=== PATIENT | female | born 1985 | race Caucasian/White ===

== ENCOUNTER 2024-04-01 11:22 | Emergency (ER) | payer OTHER, SELFPAY ==
[2024-04-01 11:27] VITALS: BP 105/78
[2024-04-01 11:52] LABS: Hematocrit 42.5 % (37.0-47.0); Mean Corp Hgb Conc. 35.3 g/dL (33.0-37.0); Mean Corpuscular Hgb 32.1 pg (27.0-31.0); Mean Platelet Volume 8.7 fL (7.4-10.4); Platelet Count 259 10^3/uL (130-400); Red Blood Cell Count 4.67 10^6/uL (4.20-5.40); Red Cell Dist. Width 11.6 % (11.5-14.5); White Blood Cell Count 4.5 10^3/uL (4.8-10.8)
[2024-04-01 12:26] VITALS: BMI 25.5
[2024-04-01 12:28] VITALS: BP 107/77
[2024-04-01 12:31] LABS: ALT (SGPT) 15 U/L (0-35); AST (SGOT) 19 U/L (14-36); Albumin 4.5 g/dl (3.5-5.0); Alkaline Phosphatase 70 U/L (38-126); Blood Urea Nitrogen 11 mg/dl (7-17); Calcium 9.5 mg/dl (8.4-10.2); Carbon Dioxide 24 mmol/L (22-30); Chloride 104 mmol/L (98-107); Estimated Creatinine Clearance 87 ml/min; Glucose 100 mg/dl (70-99); Potassium 4.4 mmol/L (3.5-5.1); Sodium 136 mmol/L (135-145); Total Bilirubin 0.4 mg/dl (0.2-1.3); Total Protein 7.3 g/dl (6.3-8.2); eGFR > 60.00
[2024-04-01 13:16] LABS: % Basophils 0.7 % (0-2); % Eosinophils 0.7 % (0-6); % Immature Granulocytes 0.2 % (0-0.5); % Lymphocytes 51.3 % (20.5-51.1); % Monocytes 8.8 % (1.7-9.3); % Neutrophils 38.3 % (42.2-75.2); Absolute Lymphocytes 2.3 10^3/uL (1.2-3.4); Absolute Monocytes 0.4 10^3/uL (0.1-0.6); Absolute Neutrophils 1.7 10^3/uL (1.4-6.5); Nucleated Red Blood Cells % 0 %
[2024-04-01] MEDS: MOTRIN 600 MG PO (14:43)
[2024-04-01 14:44] VITALS: BP 113/80
--- NOTE | 2024-04-01 15:04 | ED.SKININJ ---
HPI-Injury
<Emilee Arnold PA-C - Last Filed: 04/01/24 18:33>
General
Chief Complaint: Bite
Source: patient and significant other
Exam Limitations: none
Time Seen by Provider: 04/01/24 12:45
Nursing documentation reviewed up to this point in time: agreed with
History of Present Illness-Injury
Initial Injury comments:
Patient is a 38-year-old female who denies significant past medical history who presents to the emergency department accompanied by her for evaluation of symptoms that started 3 weeks ago but worsened 3 days ago. Patient reports that her
symptoms started the first week of March. She reports that she had been tubing down the [facility]. She reports that 1 or 2 days later, she noticed a large swollen reddened area over her right lateral thigh. Patient went to see her doctor 2
days later and was told that it was likely a brown recluse spider bite. Patient was prescribed clindamycin which she took for a week b with some gradual improvement in her symptoms. Patient reports that she went back and was prescribed steroids as
she then developed hives scattered throughout her body. Patient reports that she took a tapering dose of prednisone and this seemed to help with the hives. Patient states that she had a few days where she felt like she was improving but then 3
days ago developed severe generalized fatigue, intermittent headache, night sweats, nausea. Patient reports that the lesion seems to have healed and there is only a slightly hyperpigmented area there. Patient reports that it has been draining
serous fluid but that has resolved as well. Patient denies that it ever drained purulent fluid. Patient denies it was ever incised or drained. Patient reports that she did have a fever 3 days ago, has not had any fever since then but has been
taking ibuprofen [id number]. Patient reports that she called her doctor 2 days ago and they started her on doxycycline. Patient reports she has had 4 doses but also without any improvement in her symptoms. Patient called her doctor back
today and they referred her to the emergency department for further evaluation. At this point, patient denies any new rashes or lesions. Patient denies chest pain, shortness of breath, nasal congestion, rhinorrhea, ear pain, cough. Patient does
endorse a mild sore throat which she attributes to allergies. Patient denies abdominal pain, she does note nausea but denies vomiting or change in her bowel habits. Patient denies any known sick contacts. Patient denies any recent travel.
Past History
<Emilee Arnold PA-C - Last Filed: 04/01/24 18:33>
Past History
ED Past Medical History: Psychiatric (Anxiety)
ED Past Surgical History:
Social History
Tobacco: Non-smoker
Personal: Single
Living: with family
Employment: Employed
Review of Systems
<BREANNA Morales Last Filed: 04/01/24 18:33>
Review of Systems
All Other Systems: Not applicable
Constitutional: Reports fever and other (Night sweats)
EENT: Reports sore throat; Denies mouth pain or runny nose
Respiratory: Reports no symptoms; Denies cough or trouble breathing
Cardiac: Reports no symptoms
ABD/GI: Reports nausea; Denies abdominal pain or vomiting
: Reports no symptoms
Musculoskeletal: Reports no symptoms
Skin: Reports no symptoms
Neurological: Reports headache; Denies dizzy
Endocrine: Reports no symptoms
Hematologic/Lymphatic: Reports no symptoms
Psychiatric: Reports no symptoms
Phy Exam
<BREANNA Morales Last Filed: 04/01/24 18:33>
General Physical Exam
General Presentation: well appearing and no apparent distress
General Skin: warm and dry
General Habitus: normal
General Mental: alert
General Hydration: appears well hydrated
ENT Exam
ENT Exam: EOMI, pharynx normal, neck supple and normocephalic
Eye Exam
Eye Exam: PERRL, cornea clear and conjunctiva normal
Cardiovascular Exam
Cardiovascular Exam: regular rate/rhythm, no edema, no murmur and normal peripheral pulses
Pulmonary Exam
Pulmonary Exam: lungs clear, no respiratory distress, no rales, no crackles, no rhonchi, no stridor, no wheezing and no cough
Gastrointestinal Exam
Gastrointestinal Exam: normal bowel sounds, non tender, soft, no organomegaly, no pulsatile mass and non distended
Neurological Exam
Neurological Exam: alert, oriented x3, no motor deficits and speech normal
Musculoskeletal Exam
Musculoskeletal Exam: full ROM and no edema
Skin Exam
Skin Exam: normal color, warm/dry, no rash, no petechia and other (Small hyperpigmented area over the right lateral thigh in the location of the previous lesion, no fluctuance, no induration, no streaking erythema, no tenderness to palpation)
Psychiatric Exam
Psychiatric Exam: normal mood/affect
Course
<Emilee Arnold PA-C - Last Filed: 04/01/24 18:33>
Orders/Labs/Results
Orders:
Orders
04/01/24 11:37
CMP [Comprehensive Metabolic Panel] Urgent
Complete Blood Count/With Diff Urgent
Lyme Progressive Urgent
Comment: ADD ON
Monotest Urgent
Comment: ADD ON
04/01/24 13:39
Add On- LAB Urgent
Comments:: lyme progressive and monotest
Tests Added?: lyme progressive and monotest
04/01/24 13:42
Rapid Strep Group A Urgent
CRISTAL Source: Throat/Pharynx
Specimen Description:
Date Specimen was Collected: 04/01/24
Time Specimen was Collected: 13:36
04/01/24 14:32
Ibuprofen [Motrin] 600 mg PO NOW STA
Abnormal Lab Results
04/01/24
11:37
WBC 4.5 L 10^3/uL
(4.8-10.8)
MCH 32.1 H pg
(27.0-31.0)
Neutrophils % 38.3 L %
(42.2-75.2)
Lymphocytes % 51.3 H %
(20.5-51.1)
Glucose 100 H mg/dl
(70-99)
04/01/24 11:37
04/01/24 11:37
Vital Signs
Initial and Last Documented VS:
Initial Vital Signs
Temp Pulse Resp BP Pulse Ox
98.1 F 80 18 105/78 96
04/01/24 11:27 04/01/24 11:27 04/01/24 11:27 04/01/24 11:27 04/01/24 11:27
Last Documented Vital Signs
Temp Pulse Resp BP Pulse Ox
98.3 F 71 18 115/71 99
04/01/24 15:32 04/01/24 15:32 04/01/24 14:44 04/01/24 15:32 04/01/24 15:32
<Marga Hutchins, DO - Last Filed: 04/01/24 20:54>
Orders/Labs/Results
Orders:
Orders
04/01/24 11:37
CMP [Comprehensive Metabolic Panel] Urgent
Complete Blood Count/With Diff Urgent
Lyme Progressive Urgent
Comment: ADD ON
Monotest Urgent
Comment: ADD ON
04/01/24 13:39
Add On- LAB Urgent
Comments:: lyme progressive and monotest
Tests Added?: lyme progressive and monotest
04/01/24 13:42
Rapid Strep Group A Urgent
CRISTAL Source: Throat/Pharynx
Specimen Description:
Date Specimen was Collected: 04/01/24
Time Specimen was Collected: 13:36
04/01/24 14:32
Ibuprofen [Motrin] 600 mg PO NOW STA
Abnormal Lab Results
04/01/24
11:37
WBC 4.5 L 10^3/uL
(4.8-10.8)
MCH 32.1 H pg
(27.0-31.0)
Neutrophils % 38.3 L %
(42.2-75.2)
Lymphocytes % 51.3 H %
(20.5-51.1)
Glucose 100 H mg/dl
(70-99)
04/01/24 11:37
04/01/24 11:37
Vital Signs
Initial and Last Documented VS:
Initial Vital Signs
Temp Pulse Resp BP Pulse Ox
98.1 F 80 18 105/78 96
04/01/24 11:27 04/01/24 11:27 04/01/24 11:27 04/01/24 11:27 04/01/24 11:27
Last Documented Vital Signs
Temp Pulse Resp BP Pulse Ox
98.3 F 71 18 115/71 99
04/01/24 15:32 04/01/24 15:32 04/01/24 14:44 04/01/24 15:32 04/01/24 15:32
<Emilee Arnold PA-C - Last Filed: 04/01/24 18:33>
*Critical Care Note
Total Time (30-74mins, 75-104mins- exclusive of procedures): Not Applicable
<Emilee Arnold PA-C - Last Filed: 04/01/24 18:33>
Update Note
Update Note:
38-year-old female presents the emergency department for evaluation of constitutional symptoms which worsen 3 days ago in the setting of recent treatment for a possible brown recluse spider bite although a spider was never visualized. On arrival,
patient's vital signs are stable, she is afebrile with last taking ibuprofen around 7 AM this morning. On exam, patient appears fatigued but is otherwise well-appearing and in no acute distress, she has no evidence of a bacterial infection on her
examination. While the patient was in the waiting room, labs were performed and demonstrate no evidence of a leukocytosis, labs are otherwise nonactionable. Case discussed with ED attending and rapid strep was sent which is negative. In addition,
Monospot was sent which is also negative. Lyme testing is pending. There is no indication that the patient requires admission at this time and we feel that the patient is safe for discharge to home with instructions on continued supportive care
measures along with strict outpatient follow-up for definitive diagnosis and treatment. Patient and her significant other were educated on return precautions, they expressed understand the plan and agreed.
ED Attending Note
<Emilee Arnold PA-C - Last Filed: 04/01/24 18:33>
-
Portions of this chart may have been created with voice recognition software.� Occasional wrong word or��sound alike� substitutions may have occurred due to the inherent limitations of voice recognition software.
<Marga Hutchins DO - Last Filed: 04/01/24 20:54>
ED Attending Note
Patient seen and examined by attending physician: Yes
I performed the substantive portion of visit, reviewed & personally made and approve the management plan that is documented in note by myself or EDDI.: Yes
ED Attending Note:
38-year-old female presenting with generalized fatigue, intermittent headaches, and myalgias worsening over the past few days. Pt states after she was tubing [place] the [place] 1 month ago, she got a 'spider bite' to her right lateral thigh,
was evaluated at urgent care and started on clindamycin. Pt states rash improved. Pt states she then had an allergic reaction with hives all over her body and was started on prednisone. Pt reports fever a few days ago, Tmax 101, but none since. Pt
reports intermittent gradual onset throbbing headache for the past 2-3 days. Pt denies any numbness, weakness, tingling, or visual changes. Pt states she has been taking motrin for headache with relief. Pt states she was seen by her PCP 2 days ago
who started her on doxycycline. Pt denies any known tick bites [place] Pt states she had a negative COVID test a few days ago. Heart RRR, lungs clear, abdomen soft nontender. EOMI, PERRLA. FROM neck with no meningeal
signs. 5/5 strength bilateral upper and lower extremities. Normal finger to nose. Resolved rash to right lateral thigh with no induration, fluctuance, tenderness to palpation, or increased warmth. Pt well appearing. Labs within normal limits. Low
suspicion for meningitis given well appearing, afebrile, no meningeal signs in ER. Low suspicion for subarachnoid hemorrhage given gradual onset headache, not maximal intensity in 1 hr, neurologically intact. ?viral syndrome. Pt already on
doxycyline for possible lyme. Vitals stable. Discharge with PCP follow up
Discharge Plan
Departure
Patient Disposition: Home (Routine Discharge)
Date of Disposition: 04/01/24
Time of Disposition: 15:22
Patient with high blood pressure during this ER visit?: No
Condition: Good
Covid-19: Not Applicable
Discharge Problem:
Fatigue, Headache, Unexplained night sweats
Instructions: Fatigue (DC)
Prescriptions:
No Action
Allergy
1 tab PO HS
aspirin 325 MG tablet
325 mg PO DAILYPRN PRN (Reason: pain, fever)
escitalopram oxalate 5 MG tablet
5 mg PO HS
Iron
1 tab PO HS
Referrals:
Marisa Erwin CRNP [Family Provider] - Follow up in 2-3 days (Call for follow up appointment)
Activity Restrictions/Additional Instructions:
You were seen in the emergency department for evaluation of symptoms including severe fatigue, headache, neck discomfort, night sweats. While you were in the emergency department, you had blood work which showed no abnormalities to help explain
your symptoms. You had a strep test and monotest, both of which were negative. A Lyme test is pending, please have your primary care provider follow-up on these results. Please follow up with your primary care provider for further evaluation and
treatment. In the meantime, please try to get plenty of rest and drink plenty of fluids. You may continue to take ibuprofen and/or Tylenol for pain. Please return to the emergency department for chest pain, shortness of breath or difficulty
breathing, severe abdominal pain, persistent vomiting, if you pass out or feel like you are going to pass out, or for any other worsening or concerning symptoms.
Interventions
Interventions:
*Risk Screen - Suicide Last Done: 04/01/24 11:27
*General Assessment Last Done: 04/01/24 11:27
*Neglect/Abuse Screening Last Done: 04/01/24 11:27
ED- Fall Risk Assessment Last Done: 04/01/24 15:46
*ED COVID-19 Vaccine History Last Done: 04/01/24 11:27
*Nursing Disposition Last Done: 04/01/24 15:46
ED-Skin Assessment Last Done: 04/01/24 12:31
Discharge Date and Time
Discharge Date/Time: 04/01/24 15:47
Print Language: SINHALA
[2024-04-01 15:06] LABS: Monotest Negative (Negative)
[2024-04-01 15:32] VITALS: BP 115/71
[2024-04-02 16:01] LABS: Lyme Antibody Screen, EIA Negative (Negative)
== END 2024-04-01 15:47 | disposition home or self-care (01) ==
LOC: EMR 11:22
PROVIDERS: Emergency Medicine; EMERGENCY PHYSICIAN Emergency Medicine; FAMILY PHYSICIAN Nurse Practitioner Family
DX: R53.83 Other fatigue (principal); R51.9 Headache, unspecified; R61 Generalized hyperhidrosis
CPT/HCPCS: 99283; 80053; 85025; 86308; 86618; 87070; 87880

== ENCOUNTER → 2024-04-03 13:11 | Outpatient (REF) | payer OTHER, SELFPAY ==
[2024-04-03 12:38] LABS: ALT (SGPT) 14 U/L (0-35); AST (SGOT) 19 U/L (14-36); Alkaline Phosphatase 65 U/L (38-126); Blood Urea Nitrogen 14 mg/dl (7-17); Carbon Dioxide 28 mmol/L (22-30); Chloride 102 mmol/L (98-107); Glucose 94 mg/dl (70-99); Potassium 4.5 mmol/L (3.5-5.1); Sodium 139 mmol/L (135-145); Total Bilirubin 0.6 mg/dl (0.2-1.3); Total Protein 8.2 g/dl (6.3-8.2); eGFR > 60.00
== END ==
LOC: HWRAD 13:11
PROVIDERS: ATTENDING PHYSICIAN Nurse Practitioner Family
DX: R51.9 Headache, unspecified (principal)
CPT/HCPCS: 36415; 70470; 80053; Q9967

== ENCOUNTER → 2024-08-17 14:36 | Outpatient (REF) | payer OTHER, SELFPAY | LOC: WDC 14:36 | PROVIDERS: ATTENDING PHYSICIAN Nurse Practitioner Family | DX: Z12.31 Encounter for screening mammogram for malignant neoplasm of breast (principal); Z80.3 Family history of malignant neoplasm of breast | CPT/HCPCS: 77063; 77067 ==

== ENCOUNTER → 2024-10-09 11:09 | Outpatient (REF) | payer OTHER, SELFPAY | LOC: HWRAD 11:09 | PROVIDERS: ATTENDING PHYSICIAN Family Medicine | DX: E01.0 Iodine-deficiency related diffuse (endemic) goiter (principal) | CPT/HCPCS: 76536 ==

== ENCOUNTER 2024-10-19 17:41 | Emergency (ER) | payer OTHER, SELFPAY ==
[2024-10-19 18:00] VITALS: BP 120/77
[2024-10-19 18:39] LABS: % Basophils 0.8 % (0-2); % Eosinophils 0.8 % (0-6); % Immature Granulocytes 0.4 % (0-0.5); % Lymphocytes 21.4 % (20.5-51.1); % Monocytes 12.9 % (1.7-9.3); % Neutrophils 63.7 % (42.2-75.2); Absolute Monocytes 0.6 10^3/uL (0.1-0.6); Hematocrit 40.6 % (37.0-47.0); Hemoglobin 14.1 g/dL (12.0-16.0); Mean Corp Hgb Conc. 34.7 g/dL (33.0-37.0); Mean Corpuscular Hgb 32.3 pg (27.0-31.0); Mean Corpuscular Volume 92.9 fL (81.0-99.0); Nucleated Red Blood Cells % 0 %; Platelet Count 228 10^3/uL (130-400); Red Blood Cell Count 4.37 10^6/uL (4.20-5.40); Red Cell Dist. Width 11.7 % (11.5-14.5); Urine Albumin 1+ (Neg - Trace); Urine Bilirubin Negative (Negative); Urine Character Clear (Clear); Urine Color Yellow; Urine Glucose Negative (Negative); Urine Ketone Negative (Negative); Urine Leukocyte Negative (Negative); Urine Nitrite Negative (Negative); Urine Occult Blood 4+ (Negative); Urine Urobilinogen Negative (Neg - 1+); White Blood Cell Count 4.7 10^3/uL (4.8-10.8)
[2024-10-19 18:47] LABS: Urine Bacteria Moderate (Negative); Urine Squamous Cell 26-30 /LPF (Few); Urine White Cell 0-2 /HPF (0-5)
[2024-10-19 18:58] LABS: ALT (SGPT) 13 U/L (0-35); AST (SGOT) 22 U/L (14-36); Albumin 4.1 g/dl (3.5-5.0); Alkaline Phosphatase 53 U/L (38-126); Blood Urea Nitrogen 10 mg/dl (7-17); Calcium 8.3 mg/dl (8.4-10.2); Carbon Dioxide 23 mmol/L (22-30); Chloride 104 mmol/L (98-107); Glucose 89 mg/dl (70-99); Sodium 135 mmol/L (135-145); Total Bilirubin 0.3 mg/dl (0.2-1.3); Total Protein 6.9 g/dl (6.3-8.2); eGFR > 60.00
[2024-10-19 19:03] LABS: HCG, Serum Qualitative Screen Negative
--- NOTE | 2024-10-19 20:47 | ED.GENMED ---
History of Present Illness
General
Chief Complaint: Flank Pain
Source: patient
Exam Limitations: none
Time Seen by Provider: 10/19/24 20:47
Nursing documentation reviewed up to this point in time: agreed with
History of Present Illness
History of Present Illness:
Patient is a 38-year-old female presents to the ER for evaluation of chills and bodyaches for the past few day patient started with symptoms on Saturday 2 days ago. Since then she has had bodyaches and subjective fevers. Yesterday she started with
right flank pain and she continues to feel the pain in her right flank and her right side/right upper quadrant. She had a very slight cough that resolved. She denies any shortness of breath.
She did have a little bit of liquid diarrhea here in the ER. She was seen in urgent care and sent here for evaluation for possible kidney stones. She has no prior history kidney stones. She denies any urinary frequency urgency.
She had a neg flu/covid test at .
Past History
Past History
ED Past Medical History: Psychiatric (Anxiety)
ED Past Surgical History:
Social History
Tobacco: Non-smoker
Personal: Single
Living: with family
Employment: Employed
Review of Systems
Review of Systems
Allergies reviewed?: Yes
All Other Systems: ROS reviewed and negative except as documented in HPI and ROS
Constitutional: Reports fever and chills
Respiratory: Reports no symptoms and other (minimal cough ); Denies trouble breathing
Cardiac: Reports no symptoms
ABD/GI: Reports abdominal pain, nausea and diarrhea; Denies vomiting
: Reports flank pain; Denies dysuria, incontinence, urgency, bleeding or discharge
Musculoskeletal: Reports other (body aches)
Skin: Reports no symptoms
Neurological: Reports no symptoms
Psychiatric: Reports no symptoms
Phy Exam
General Physical Exam
General Presentation: no apparent distress
General age: appears stated age
General Skin: warm and dry
General Habitus: normal
General Mental: alert
General Hydration: appears well hydrated
Cardiovascular Exam
Cardiovascular Exam: regular rate/rhythm, no murmur and normal peripheral pulses
Pulmonary Exam
Pulmonary Exam: lungs clear and no respiratory distress
Gastrointestinal Exam
Gastrointestinal Exam: soft and other (mild ruq tenderness )
Neurological Exam
Neurological Exam: alert and oriented x3
Musculoskeletal Exam
Musculoskeletal Exam: full ROM
Skin Exam
Skin Exam: normal color
Psychiatric Exam
Psychiatric Exam: normal mood/affect
Course
Orders/Labs/Results
Orders:
Orders
10/19/24 18:04
Test Result ONCE
10/19/24 18:31
Complete Blood Count/With Diff Urgent
Comprehensive Metabolic Panel Urgent
HCG, Serum Qualitative Screen Urgent
Urinalysis Reflex To Culture Urgent
Date Specimen was Collected: 10/19/24
Time Specimen was Collected: 18:04
Urine Microscopic Reflex Cult Urgent
Urine Culture Urgent
CRISTAL Source: U
Specimen Description:
Date Specimen was Collected: 10/19/24
Time Specimen was Collected: 18:04
10/19/24 18:48
CT Abd/pel Without Iv Or Oral Urgent
Comment:
Reason For Exam: Right flank pain, hematuria
10/19/24 21:02
IV Insert/Care/Rem.- Treatment PRN
0.9% Sodium Chloride 1000 ml [Nss] 1,000 ml IV BOLUS
Ketorolac [Toradol] 15 mg IV NOW STA
Ondansetron Injectable [Zofran] 4 mg IV NOW STA
US Abdomen Limited Urgent
Comment: F/U GALLBLADDER ON CT
Reason For Exam: right flank ; RUQ pain
10/19/24 21:03
Electrocardiogram (*1) Stat
Reason for Study: Other
Other Reason for Exam: chest pain
EKG- Treatment ONCE
10/19/24 21:43
COVID-19 Antigen Urgent
Source: Nasal Swab
Influenza A+B Rapid Molecular Urgent
CRISTAL Source: Nasal Swab
Specimen Description:
Abnormal Lab Results
10/19/24
18:31
WBC 4.7 L 10^3/uL
(4.8-10.8)
MCH 32.3 H pg
(27.0-31.0)
Absolute Lymphs (auto) 1.0 L 10^3/uL
(1.2-3.4)
Monocytes % 12.9 H %
(1.7-9.3)
Calcium 8.3 L mg/dl
(8.4-10.2)
Ur Occult Blood Reflex 4+ A
(Negative)
Urine RBC 7-10 A /HPF
(0-2)
Urine Bacteria (Reflex) Moderate A
(Negative)
Urine Albumin (Reflex) 1+ A
(Neg - Trace)
10/19/24 18:31
10/19/24 18:31
Vital Signs
Initial and Last Documented VS:
Initial Vital Signs
Temp Pulse Resp BP Pulse Ox
99 F 68 18 120/77 100
10/19/24 18:00 10/19/24 18:00 10/19/24 18:00 10/19/24 18:00 10/19/24 18:00
Last Documented Vital Signs
Temp Pulse Resp BP Pulse Ox
97.8 F 66 16 115/64 99
10/19/24 23:10 10/19/24 23:10 10/19/24 23:10 10/19/24 23:10 10/19/24 23:10
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
Machine Setter Sheet [employer] consulted with physician?: Yes
Name of Physician Consulted: Latisha
MDM/Problems Addressed
MDM/Problems Addressed:
Symptoms are likely consistent with viral syndrome. Patient has had chills body aches past several days she had some pain in the right flank abdominal area which is of brought her here to the ER. She has not had any vomiting. She denies any
shortness of breath or chest pain. She presents awake alert no acute distress nontachycardic nonhypoxic white count minimally low at 4.7, normal chemistries.
She denies any UTI symptoms small Macdonald blood in urine however CAT scan unremarkable, no renal colic no infection abdominal ultrasound negative + mod stool in colon suggesting constipation
Patient is nontoxic-appearing will plan for discharge home with supportive care. Discussed return if any worsening of symptoms
*Radiology
Radiology exam reviewed: radiology read reviewed
*Pulse Oximetry
Patient hypoxic: no
*Critical Care Note
Total Time (30-74mins, 75-104mins- exclusive of procedures): Not Applicable
ED Attending Note
-
Portions of this chart may have been created with voice recognition software.� Occasional wrong word or��sound alike� substitutions may have occurred due to the inherent limitations of voice recognition software.
Discharge Plan
Departure
Patient Disposition: Home (Routine Discharge)
Date of Disposition: 10/19/24
Time of Disposition: 23:46
Patient with high blood pressure during this ER visit?: No
Condition: Fair
Covid-19: Not Applicable
Discharge Problem:
Acute viral syndrome
Prescriptions:
No Action
Allergy
1 tab PO HS
aspirin 325 MG tablet
325 mg PO DAILYPRN PRN (Reason: pain, fever)
escitalopram oxalate 5 MG tablet
5 mg PO HS
Iron
1 tab PO HS
Referrals:
Marisa Erwin CRNP [Family Provider] -
Activity Restrictions/Additional Instructions:
As discussed your workup was unremarkable. It is likely that you have a viral syndrome. Be sure to stay well-hydrated. Follow-up closely with your family doctor in the next several days for reevaluation. Please have a urinalysis rechecked
as you had a small amount of blood in your urine. Return if any worsening of symptoms
Discharge Date and Time
Print Language: TAJIK
[2024-10-19] MEDS: NSS 1000 IV (21:40)
[2024-10-19] MEDS: ZOFRAN 4 MG IV (21:41)
[2024-10-19] MEDS: TORADOL 15 MG IV (21:41)
[2024-10-19 22:06] LABS: COVID-19 Antigen Negative (Negative)
[2024-10-19 23:10] VITALS: BP 115/64
== END 2024-10-19 23:58 | disposition home or self-care (01) ==
LOC: EMR 17:41
PROVIDERS: Emergency Medicine; Nurse Practitioner; EMERGENCY PHYSICIAN Emergency Medicine; FAMILY PHYSICIAN Nurse Practitioner Family
DX: B34.9 Viral infection, unspecified (principal); R10.11 Right upper quadrant pain; Z11.52 Encounter for screening for COVID-19
CPT/HCPCS: 96374; 96375; 96361; 99284; 74176; 76705; 80053; 81003; 81015; 84703; 85025; 87086; 87502; 87811; 93005